=== PATIENT | female | born 1980 | race Caucasian/White ===

== ENCOUNTER 2018-04-22 05:26 | Day surgery (SDC) | payer BC ==
[~2018-04-22] VITALS: Ht 170.2 cm; Wt 93.1 kg
[2018-04-22] VITALS (12 sets, daily range): BP systolic 112–124; BP diastolic 55–82; PULSE 56–84; TEMP 98.3–98.9
[2018-04-22] MEDS ORDERED: ALIGN PO (05:45)
[2018-04-22] MEDS ORDERED: ADULT MULTIVIT1 EACH PO (05:45)
[2018-04-22] MEDS ORDERED: MOTRIN 800800 MG/TAB PO (07:05)
[2018-04-22] MEDS ORDERED: PERCOCET 325 MG1 TA2 PO (07:05)
== END 2018-04-22 17:10 | disposition home or self-care (01) ==
LOC: SDCO 05:26 → OB 10:00 → SURG 10:00 → SDCO 10:00
DX: N92.0 Excessive and frequent menstruation with regular cycle (principal); F32.81 Premenstrual dysphoric disorder; Z87.891 Personal history of nicotine dependence
CPT/HCPCS: OP; A4314; J0690; J1100; J1885; J2405; J2550; J2704; J3010; J7120